=== PATIENT | female | born 1965 | race Caucasian/White ===

== ENCOUNTER 2019-11-09 15:46 | Emergency (ER) | payer OTHER, SELFPAY ==
[2019-11-09 16:48] VITALS: BP 182/110; PULSE 75; RESP 18; TEMP 36.7; O2SAT 97; BMI 31.7
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
[2019-11-09 19:00] VITALS: BP 188/97; PULSE 20; RESP 18; O2SAT 97
== END 2019-11-09 19:03 | disposition home or self-care (01) ==
PROVIDERS: Emergency Provider Nurse Practitioner Family
DX: S13.4XXA Sprain of ligaments of cervical spine, initial encounter (principal); V89.2XXA Person injured in unspecified motor-vehicle accident, traffic, initial encounter
CPT/HCPCS: 99281